=== PATIENT | female | born 1975 | race Caucasian/White ===

== ENCOUNTER 2018-10-05 11:15 | Emergency (ER) | payer OTHER ==
[2018-10-05] MEDS ORDERED: LORazepam 0.5 MG Tab PO ONE (15:33)
--- NOTE | 2018-10-05 16:37 | EDM.PDOC ---
ED HPI GENERAL MEDICAL PROBLEM - General Chief Complaint: General Stated Complaint: FAINT FEELING, SHAKY, TINGLY Time Seen by Provider: 10/05/18 13:00 Source of Information: Reports: Patient History Limitations: Reports: No Limitations - History of Present Illness INITIAL COMMENTS - FREE TEXT/NARRATIVE: PT ARRIVED FEELING TINGLY AND SHAKYEY. tHIS STARTED WHILE SHE WAS DRIVING TODAY. sHE HAS HAD 2 PREVIOUS EPISODES BUT THIS WAS THE LONGEST ONE. sHE FELT LIKE THIS LASTED TTO THE POINT THAT SHE WAS NOT ABLE TO KEEP DRIVING. sHE WORKS AT [employer]. Onset: Today, Sudden Duration: Minutes: Location: Reports: Other (pT WAS TINGLY AND ASHAKEY ON [employer]. ) Associated Symptoms: Reports: Shortness of Breath, Weakness - Related Data Allergies Allergy/AdvReac Type Severity Reaction Status Date / Time No Known Allergies Allergy Verified 10/05/18 12:55 Home Meds: Home Meds NK [No Known Home Meds] 10/05/18 [History] Past Medical History Genitourinary History: Reports: Renal Calculus Neurological History: Reports: Other (See Below) Other Neuro History: bells palsy last mar. - Infectious Disease History Infectious Disease History: Reports: Chicken Pox - Past Surgical History GI Surgical History: Reports: Appendectomy, Cholecystectomy Social & Family History - Tobacco Use Smoking Status *Q: Current Every Day Smoker Years of Tobacco use: 10 Packs/Tins Daily: 1 - Caffeine Use Caffeine Use: Reports: Coffee - Recreational Drug Use Recreational Drug Use: No ED ROS GENERAL - Review of Systems Review Of Systems: See Below Constitutional: Reports: No Symptoms HEENT: Reports: No Symptoms Respiratory: Reports: Shortness of Breath Cardiovascular: Reports: No Symptoms, Palpitations Endocrine: Reports: Polyuria GI/Abdominal: Reports: No Symptoms : Reports: No Symptoms Musculoskeletal: Reports: No Symptoms Skin: Reports: No Symptoms Neurological: Reports: No Symptoms ED EXAM, GENERAL - Physical Exam Exam: See Below Free Text/Narrative:: PT ARRIVED FEELING TINGLY AND SHE WAS SHAKEY. tHIS STARTED WHILE SHE WAS DRIVING. sHE HAS HAD 2 PREVIOUS EPISODES. Exam Limited By: No Limitations General Appearance: Alert, Anxious Ears: Normal TMs Nose: Normal Inspection Throat/Mouth: Normal Inspection Head: Atraumatic Neck: Normal Inspection Respiratory/Chest: No Respiratory Distress, Other (PT DID HAVE GOO OXGENATION. ) Cardiovascular: Regular Rate, Rhythm GI/Abdominal: Soft, Non-Tender Rectal (Female) Exam: Deferred Back Exam: Normal Inspection Extremities: Normal Inspection Neurological: Alert, Normal Cognition, Normal Reflexes Course - Vital Signs Last Recorded V/S: Last Vital Signs Temp 36 C 10/05/18 14:28 Pulse 86 10/05/18 14:28 Resp 16 10/05/18 14:28 BP 130/79 10/05/18 14:28 Pulse Ox 95 10/05/18 14:28 - Orders/Labs/Meds Orders: Active Orders 24 hr Category Date Time Status EKG Documentation Completion [RC] ASDIRECTED Care 10/05/18 14:13 Active CULTURE URINE [RM] Stat Lab 10/05/18 16:10 Received EKG 12 Lead [EK] Routine Ther 10/05/18 14:13 Ordered Labs: Laboratory Tests 10/05/18 10/05/18 10/05/18 Range/Units 14:12 14:22 14:24 WBC 8.3 (4.5-11.0) K/uL RBC 4.84 (3.30-5.50) M/uL Hgb 15.0 (12.0-15.0) g/dL Hct 44.0 (36.0-48.0) % MCV 91 (80-98) fL MCH 31 (27-31) pg MCHC 34 (32-36) % Plt Count 204 (150-400) K/uL Neut % (Auto) 76 H (36-66) % Lymph % (Auto) 18 L (24-44) % [place] % (Auto) 5 (2-6) % Eos % (Auto) 0 L (2-4) % Baso % (Auto) 0 (0-1) % Sodium (140-148) mmol/L Potassium (3.6-5.2) mmol/L Chloride (100-108) mmol/L Carbon Dioxide (21-32) mmol/L Anion Gap (5.0-14.0) mmol/L BUN (7-18) mg/dL Creatinine (0.6-1.0) mg/dL Est Cr Clr Drug Dosing mL/min Estimated GFR (MDRD) (>60) Glucose (74-106) mg/dL Calcium (8.5-10.1) mg/dL Total Bilirubin (0.2-1.0) mg/dL AST (15-37) U/L ALT (12-78) U/L Alkaline Phosphatase (46-116) U/L Troponin I (0.000-0.056) ng/mL Total Protein (6.4-8.2) g/dL Albumin (3.4-5.0) g/dL Globulin (2.3-3.5) g/dL Albumin/Globulin Ratio (1.2-2.2) TSH, Ultra Sensitive 0.518 (0.358-3.740) uIU/mL Urine Color Yellow Urine Appearance Slightly cloudy Urine pH 6.0 (4.5-8.0) Ur Specific [place] 1.020 (1.008-1.030) Urine Protein Negative (NEGATIVE) mg/dL Urine Glucose (UA) Normal (NEGATIVE) mg/dL Urine Ketones 50 H (NEGATIVE) mg/dL Urine Occult Blood Negative (NEGATIVE) Urine Nitrite Positive H (NEGATIVE) Urine Bilirubin Negative (NEGATIVE) Urine Urobilinogen Normal (NORMAL) mg/dL Ur Leukocyte Esterase Negative (NEGATIVE) Urine RBC Not seen (0-5) Urine WBC 0-5 (0-5) Ur Epithelial Cells Moderate Amorphous Sediment Not seen Urine Bacteria Many Urine Mucus Not seen 10/05/18 10/05/18 Range/Units 14:24 16:10 WBC (4.5-11.0) K/uL RBC (3.30-5.50) M/uL Hgb (12.0-15.0) g/dL Hct (36.0-48.0) % MCV (80-98) fL MCH (27-31) pg MCHC (32-36) % Plt Count (150-400) K/uL Neut % (Auto) (36-66) % Lymph % (Auto) (24-44) % [place] % (Auto) (2-6) % Eos % (Auto) (2-4) % Baso % (Auto) (0-1) % Sodium 141 (140-148) mmol/L Potassium 3.9 (3.6-5.2) mmol/L Chloride 108 (100-108) mmol/L Carbon Dioxide 24 (21-32) mmol/L Anion Gap 9.3 (5.0-14.0) mmol/L BUN 9 (7-18) mg/dL Creatinine 0.7 (0.6-1.0) mg/dL Est Cr Clr Drug Dosing 88.66 mL/min Estimated GFR (MDRD) > 60 (>60) Glucose 91 (74-106) mg/dL Calcium 9.4 (8.5-10.1) mg/dL Total Bilirubin 0.4 (0.2-1.0) mg/dL AST 15 (15-37) U/L ALT 15 (12-78) U/L Alkaline Phosphatase 64 (46-116) U/L Troponin I < 0.017 (0.000-0.056) ng/mL Total Protein 6.9 (6.4-8.2) g/dL Albumin 4.0 (3.4-5.0) g/dL Globulin 2.9 (2.3-3.5) g/dL Albumin/Globulin Ratio 1.4 (1.2-2.2) TSH, Ultra Sensitive (0.358-3.740) uIU/mL Urine Color Urine Appearance Urine pH (4.5-8.0) Ur Specific [place] (1.008-1.030) Urine Protein (NEGATIVE) mg/dL Urine Glucose (UA) (NEGATIVE) mg/dL Urine Ketones (NEGATIVE) mg/dL Urine Occult Blood (NEGATIVE) Urine Nitrite (NEGATIVE) Urine Bilirubin (NEGATIVE) Urine Urobilinogen (NORMAL) mg/dL Ur Leukocyte Esterase (NEGATIVE) Urine RBC (0-5) Urine WBC (0-5) Ur Epithelial Cells Amorphous Sediment Urine Bacteria Urine Mucus Meds: Medications Discontinued Medications Generic Name Dose Route Start Last Admin Trade Name Freq PRN Reason Stop Dose Admin Lorazepam 0.5 mg 10/05/18 15:33 10/05/18 15:46 Ativan PO 10/05/18 15:34 0.5 mg ONETIME ONE Administration - Re-Assessments/Exams Free Text/Narrative Re-Assessment/Exam: 10/05/18 16:36 LAB WORK WAS NORMAL EXCEPT A uti. sHE WAS GIVEN ATIVAN .5 AND PT DID FEEL BETTER. sHE FEELS THAT THIS COULD BE ANXIETY. Departure - Departure Time of Disposition: 16:37 Disposition: Home, Self-Care 01 Condition: Fair Clinical Impression: UTI (urinary tract infection), Anxiety - Discharge Information Referrals: PCP,None [Primary Care Provider] - Care Plan Goals: iF PT HAS FURTHER SYMPTOMS SHE MAY NEED FURTHER WORK UP. CIPRO 500MG BID FOR 1 WEEK. - My Orders Last 24 Hours: My Active Orders 10/05/18 14:13 EKG Documentation Completion [RC] ASDIRECTED EKG 12 Lead [EK] Routine 10/05/18 16:10 CULTURE URINE [RM] Stat - Assessment/Plan Last 24 Hours: My Active Orders 10/05/18 14:13 EKG Documentation Completion [RC] ASDIRECTED EKG 12 Lead [EK] Routine 10/05/18 16:10 CULTURE URINE [RM] Stat
== END 2018-10-05 16:47 | disposition home or self-care (01) ==
LOC: JP.ED 11:15
DX: F41.9 Anxiety disorder, unspecified (principal); N39.0 Urinary tract infection, site not specified
CPT/HCPCS: 36415; 80053; 81001; 84443; 84484; 85025; 87086; 87088; 87186; 93005; 99284; A9270

== ENCOUNTER 2022-01-15 18:18 | Emergency (ER) | payer MEDICAID, OTHER ==
[2022-01-15] MEDS ORDERED: Sodium Chloride 0.9% 10 ML Syringe FLUSH PRN (19:33)
[2022-01-15] MEDS ORDERED: fentaNYL 50 MCG/ML SDV IVPUSH ONE (19:47)
[2022-01-15 20:08] LABS: ESTIMATED GFR 79 mL/min (>60)
[2022-01-15] MEDS ORDERED: Tamsulosin 0.4 MG Cap.ER PO ONE (20:49)
[2022-01-15] MEDS ORDERED: Ketorolac 30 MG/ML SDV IVPUSH ONE (20:49)
== END 2022-01-15 21:17 | disposition home or self-care (01) ==
LOC: JP.ED 18:18
DX: N20.0 Calculus of kidney (principal); Z79.899 Other long term (current) drug therapy; Z86.16 Personal history of COVID-19; Z90.49 Acquired absence of other specified parts of digestive tract; Z87.891 Personal history of nicotine dependence
CPT/HCPCS: 36415; 74176; 80053; 81001; 83605; 85025; 85651; 96374; 96375; 99284; A9270; J1885; J3010; J3490